=== PATIENT | male | born 1945 | race Caucasian/White ===

== ENCOUNTER → 2020-03-02 | Outpatient (CLI) | payer MEDICARE, BC ==
[~2020-03-02] MED LIST: CARVEDILOL12.5 MG PO; DIATRIZOATE MEGL/DIATRIZOA SOD 30 ML BTL PO ONE; FUROSEMIDE40 MG PO; IOPAMIDOL 370 MG/ML 200 ML INFUS..BTL INJ ONE; LISINOPRIL-HCT1 EAC2 PO; NEURONTIN300 MG PO; PERCOCET 10-321 EACH PO; PREDNISOLONE5 MG PO; PROTONIX20 MG PO; SODIUM CHLORIDE 0.9% 500ML 500 ML ONE; SODIUM CHLORIDE 0.9% 50ML 50 ML ONE; ULTRAM 50MG50 MG PO; Z.0.ARAVA20 MG PO; Z.0.MELOXICAM7.5 MG PO; Z.0.PLAQUENIL200 MG PO; Z.0.PREDNISONE5 MG PO; Z.0.SOMA350 MG PO; Z.0.VALIUM2 MG PO; Z.0.ZOCOR20 MG PO; Z.1.HYDROCODON-ACE1 PO; [UNRECOGNIZED DRUG - OTHER] PO
[2020-03-02 15:34] LABS: CREATININE, SERUM 1.3 mg/dL (0.72-1.25)
--- NOTE | 2020-03-02 18:47 | Diagnostic Imaging Report ---
EXAMINATION: CT of the abdomen and pelvis with contrast. TECHNIQUE: Spiral CT images of the abdomen and pelvis were performed from the lung bases to the lesser trochanters after the intravenous administration of 100 cc of Isovue 370 and the oral administration of dilute Gastrografin. Coronal and sagittal reformatted images were obtained. COMPARISON: CT abdomen and pelvis with contrast 10/20/2015 CLINICAL HISTORY:Diverticulitis DISCUSSION: ABDOMEN/PELVIS: LINES AND TUBES: A radiopaque wire or catheter is noted in the subcutaneous soft tissues of the left abdominal wall, which enters the peritoneal cavity in the left anterolateral abdomen, with distal tip in the left mid peritoneum (series 2, image 33). LOWER THORAX:1.7 x 2.0 cm nodule in the left lower lobe (series 2, image 4). Bilateral basal atelectatic changes. Subpleural paraseptal cystic changes are identified. Atherosclerotic calcification of the coronary arteries and thoracic aorta. HEPATOBILIARY: No focal hepatic lesions. No intra or extrahepatic biliary ductal dilation. GALLBLADDER: No radio-opaque stones or sludge. No wall thickening. SPLEEN: No splenomegaly. PANCREAS: No focal masses or ductal dilatation. Moderate pancreatic atrophy. Mild fatty replacement of the pancreatic head. ADRENALS: No adrenal nodules. KIDNEYS/URETERS: Bilateral renal cortical thinning. Cortical scarring in the inferior pole of the left kidney. No solid enhancing masses. No stones, hydronephrosis or evidence of obstruction. PELVIC ORGANS/BLADDER: Bladder is mostly unremarkable. Mildly dystrophic calcifications in the prostate. Seminal vesicles are unremarkable. PERITONEUM/RETROPERITONEUM: No free air or fluid. LYMPH NODES: No intra-abdominal, retroperitoneal, pelvic or inguinal lymphadenopathy. VESSELS: The celiac trunk,superior mesenteric and bilateral renal arteries are patent The portal, superior mesenteric and splenic veins are patent. Moderate to marked atherosclerotic calcification of the abdominal aorta, predominantly infrarenal portion, and bilateral iliac vessels. IVC filter in place. GI TRACT: Oral contrast is noted predominantly in the distal small bowel and proximal colon to the mid transverse. Distal descending and sigmoid colon marked diverticulosis. There is a 3-4 cm segment of the mid sigmoid colon (series 2, image 67 and coronal image 60), which shows wall thickening and very mild very sigmoidal fat stranding. No foci of extraluminal air or adjacent well-defined enhancing fluid collections. The bowel shows no dilation or evidence of obstruction. BONES AND SOFT TISSUE: Marked generalized osteopenia. No aggressive lytic or suspicious sclerotic lesions. Marked multilevel degenerated discs and facet hypertrophy in the lumbosacral spine. Posterior fusion hardware extending from L4 through S1. Intact partially visualized hardware in the right proximal femur. Soft tissues are grossly unremarkable. IMPRESSION: 1. Findings likely represent very mild or early diverticulitis, in the appropriate clinical setting. No evidence of perforation or adjacent abscess formation. 2. 2.0 cm solid nodule in the left lower lobe, suspicious for primary bronchogenic neoplasm. Recommend tissue diagnosis with biopsy or PET/CT, if patient unable to tolerate biopsy. Signed by: Dr. Ramon Herrera M.D. on 03/02/2020 6:43 PM
== END ==
LOC: CT 14:25
PROVIDERS: ATTEND Internal Medicine Gastroenterology
DX: K57.92 Diverticulitis of intestine, part unspecified, without perforation or abscess without bleeding (principal)
CPT/HCPCS: 36415; 74177; 82565; 84520; 96360; J7040; Q9967

== ENCOUNTER → 2020-03-05 | Day surgery (SDC) | payer MEDICARE, BC ==
[2020-03-02 17:09] LABS: BASOPHILS % 0.4 % (0.0-1.0); EOSINOPHILS # (AUTO) 0.2 (0.0-0.4); EOSINOPHILS % 2.2 % (0.0-6.0); HEMATOCRIT 43.5 % (38.2-49.6); HEMOGLOBIN 13.8 g/dL (14.0-18.0); LYMPHOCYTES # (AUTO) 2.7 (1.0-3.2); LYMPHOCYTES % 27.2 % (18.0-39.1); MEAN CORPUSCULAR HEMOGLOBIN 31.4 pg (28-32); MEAN CORPUSCULAR HGB CONC 31.7 g/dL (31-35); MEAN CORPUSCULAR VOLUME 98.9 fL (81-99); MONOCYTES # (AUTO) 1.3 (0.2-0.8); MONOCYTES % 13.4 % (4.4-11.3); NEUTROPHILS # (AUTO) 5.5 (2.1-6.9); PLATELET COUNT 151 x10e3/uL (140-360); RED CELL DISTRIBUTION WIDTH 12.5 % (11.7-14.4)
[~2020-03-05] MED LIST changes: -DIATRIZOATE MEGL/DIATRIZOA SOD 30 ML BTL PO ONE; +ETOMIDATE 2 MG/ML 10 ML INJ IV ONE; +FENTANYL CITRATE/PF 100MCG/2 ML INJ ONE; +HYDRALAZINE HCL 20 MG/ML VIAL ONE; -IOPAMIDOL 370 MG/ML 200 ML INFUS..BTL INJ ONE; +LIDOCAINE HCL 2% LOCAL INJ 5 ML SDV VIAL INJ ONE; +MIDAZOLAM HCL 2 MG/2 ML VIAL ONE; +PROPOFOL IV EMULSION 10 MG/ML 20 ML VIAL ONE; -SODIUM CHLORIDE 0.9% 500ML 500 ML ONE; -SODIUM CHLORIDE 0.9% 50ML 50 ML ONE
--- NOTE | 2020-03-05 07:15 | NUR ---
SPIRITUAL CARE - Pre-Surgery Assessment: Pt in bed. Pt's at bedside. Pt reported supportive attention from family and friends. Intervention: Sign Hanger Supervisor provided pastoral presence, hospitality, prayer, and sympathetic listening. Acquainted pt with availability of histology manager while hospitalized. Outcome: Pt expressed appreciation for visit. No need for follow up indicated at this time. GALEN Wilde Spiritual Care Department O: [phone]
[2020-03-05 08:45] VITALS: BP 149/93
--- NOTE | 2020-03-05 09:03 | Operative Report ---
DATE OF PROCEDURE: 03/05/2020 SURGEON: Jerrod Nascimento MD PROCEDURE: EGD with biopsies. INDICATIONS FOR EGD: Melena. MEDICATIONS: The patient was done under MAC, please see anesthesiologist's note. PROCEDURE IN DETAIL: With the patient in the left lateral decubitus position, a flexible fiberoptic Olympus gastroscope was introduced into the esophagus under direct visualization without any difficulty. The esophagus appeared to be within normal limits. The scope was then advanced with ease into the stomach. Mucosa overlying the antrum and the body revealed some diffuse erythema and moderate edema, and biopsies were obtained, sent to stain for H pylori. The pylorus was intubated with ease and the scope was advanced all the way to the second portion of the duodenum. The scope was then withdrawn slowly. Mucosa overlying the proximal second portion and duodenal bulb appeared to be within normal limits. The scope was then withdrawn back into the stomach and retroflexed, and mucosa overlying the fundus and cardia appeared to be within normal limits. The scope was then straightened out it was subsequently withdrawn. The patient tolerated the procedure well. IMPRESSION: 1. Normal esophagus. 2. Gastritis biopsied, biopsies sent to stain for H pylori. PLAN: Follow up histology. Continue Protonix 40 mg one p.o. q.a.m. a.c. If melena persists, the patient will need a small bowel series and if negative, a capsule endoscopy. The patient declined colonoscopy. Jerrod Nascimento MD [facility] [place] /[id number] cc: Elkin Mathias MD
== END | disposition home or self-care (01) ==
LOC: OR 05:49
PROVIDERS: ATTEND Internal Medicine Gastroenterology
DX: K29.60 Other gastritis without bleeding (principal); K57.92 Diverticulitis of intestine, part unspecified, without perforation or abscess without bleeding; K58.9 Irritable bowel syndrome, unspecified; Z86.718 Personal history of other venous thrombosis and embolism; Z85.118 Personal history of other malignant neoplasm of bronchus and lung; I10 Essential (primary) hypertension; Z01.810 Encounter for preprocedural cardiovascular examination; Z01.812 Encounter for preprocedural laboratory examination; Z11.59 Encounter for screening for other viral diseases
CPT/HCPCS: 36415; 43239; 85025; 87635; 88305; 88312; 93005; J0360; J2001; J2250; J2704; J3010

== ENCOUNTER 2020-03-12 14:57 | Emergency (ER) | payer MEDICARE, BC, OTHER ==
[~2020-03-12] VITALS: Ht 182.9 cm; Wt 114.3 kg
[~2020-03-12 14:57] MED LIST changes: -ETOMIDATE 2 MG/ML 10 ML INJ IV ONE; -FENTANYL CITRATE/PF 100MCG/2 ML INJ ONE; -HYDRALAZINE HCL 20 MG/ML VIAL ONE; -LIDOCAINE HCL 2% LOCAL INJ 5 ML SDV VIAL INJ ONE; -MIDAZOLAM HCL 2 MG/2 ML VIAL ONE; -PROPOFOL IV EMULSION 10 MG/ML 20 ML VIAL ONE
--- NOTE | 2020-03-12 15:28 | NUR ---
URINAL AT BEDSIDE. AWARE OF NEED FOR URINE SAMPLE.
[2020-03-12 15:40] LABS: BASOPHILS % 0.4 % (0.0-1.0); EOSINOPHILS # (AUTO) 0.1 (0.0-0.4); EOSINOPHILS % 1.3 % (0.0-6.0); HEMATOCRIT 43.4 % (38.2-49.6); HEMOGLOBIN 13.8 g/dL (14.0-18.0); LYMPHOCYTES # (AUTO) 1.5 (1.0-3.2); LYMPHOCYTES % 15.2 % (18.0-39.1); MEAN CORPUSCULAR HEMOGLOBIN 31.2 pg (28-32); MEAN CORPUSCULAR HGB CONC 31.8 g/dL (31-35); MONOCYTES # (AUTO) 0.8 (0.2-0.8); MONOCYTES % 8.3 % (4.4-11.3); NEUTROPHILS # (AUTO) 7.3 (2.1-6.9); PLATELET COUNT 186 x10e3/uL (140-360); RED BLOOD COUNT 4.43 x10e6/uL (4.3-5.7); RED CELL DISTRIBUTION WIDTH 12.8 % (11.7-14.4)
[2020-03-12 15:48] LABS: INR 0.9; PROTHROMBIN TIME 12.7 seconds (11.9-14.5)
[2020-03-12 15:56] LABS: ALBUMIN 3.5 g/dL (3.5-5.0); ALBUMIN/GLOBULIN RATIO 1.2 (0.8-2.0); ANION GAP 12.4 mmol/L (8-16); CREATININE, SERUM 1.27 mg/dL (0.72-1.25); POTASSIUM 4.4 mmol/L (3.5-5.1)
[2020-03-12 16:02] LABS: CREATINE KINASE MB 1.1 ng/mL (0-5.0)
[2020-03-12 16:03] LABS: B-TYPE NATRIURETIC PEPTIDE2 102.9 pg/mL (0-100)
--- NOTE | 2020-03-12 16:39 | NUR ---
2ND CALL FOR RADIOLOGY
[2020-03-12] MEDS ORDERED: SODIUM CHLORIDE 0.9% 1000ML 1,000 ML IV STA (17:06)
[2020-03-12 17:15] LABS: COLOR,URINE YELLOW (YELLOW)
[2020-03-12 17:16] LABS: BILIRUBIN,URINE NEGATIVE (NEGATIVE); CLARITY,URINE CLEAR (CLEAR); KETONES,URINE NEGATIVE (NEGATIVE); LEUKOCYTE ESTERASE ,URINE NEGATIVE (NEGATIVE); NITRITE,URINE NEGATIVE (NEGATIVE); PROTEIN,URINE DIPSTICK NEGATIVE (NEGATIVE); URINE UROBILINOGEN 0.2 mg/dL (0.2 - 1)
[2020-03-12] MEDS ORDERED: DIATRIZOATE MEGL/DIATRIZOA SOD 30 ML BTL PO ONE (17:38)
--- NOTE | 2020-03-12 17:46 | Emergency Department Note ---
History of Present Illnes History of Present Illness Chief Complaint: COVID PUI History of Present Illness This is a 75 year old male LLQ ABD PAIN X 3 DAYS. DIARRHEA, NAUSEA, LOW GRADE FEVER. ROOM AIR WAS 90-91%. PT THEN TOLD EMS HE'S SUPPOSE TO BE ON PERMANENT O2 AND PLACED ON 2 LPM SATING 97% NOW. STATES LAST WK COVID WAS NEGATIVE. PT NOT EATING OR DRINKING X THREE DAYS. FEELING WEAK. 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 Any updates have been documented here. (RUBINA GARCIA MD) Past Medical History Recent Fever: No Clinical Suspicion of Infectio: No New/Unexplained Change in Ment: No Past Medical History: Hypertension, CHF, Cancer, Hyperlipedemia, Chronic Back Pain, Osteoarthritis Other Medical History: ARTHRITIS DIVERTICULITIS LUNG CANCER Past Surgical History: Back Surgery Other Surgery: SPINAL FUSION X 5 NECK FUSION RIGHT FEMUR; (RUBINA GARCIA MD) Social History Smoking Cessation: Unknown if ever smoked Counseling Performed: No Alcohol Use: None Any Illegal Drug Use: No TB Exposure/Symptoms: No Physically hurt or threatened: No (RUBINA GARCIA MD) Other Last Tetanus: UNK Last Flu: Y Last Pneumovax: Y (RUBINA GARCIA MD) Review of Systems Review of Systems Constitutional: Reports no symptoms EENTM: Reports no symptoms Cardiovascular: Reports no symptoms Respiratory: Reports no symptoms Gastrointestinal: Reports as per HPI, Reports abdominal pain Genitourinary: Reports no symptoms Musculoskeletal: Reports no symptoms Integumentary: Reports no symptoms Neurological: Reports no symptoms Psychological: Reports no symptoms Endocrine: Reports no symptoms Hematological/Lymphatic: Reports no symptoms (RUBINA GARCIA MD) Physical Exam Related Data Allergies: Coded Allergies: No Known Drug Allergies (Verified Allergy, Unknown, 04/28/13) Triage Vital Signs Vital Signs Date Time Temp Pulse Resp B/P (MAP) Pulse Ox O2 Delivery O2 Flow Rate FiO2 03/12/20 14:59 99.3 74 18 146/90 96 Vital signs reviewed: Yes (RUBINA GARCIA MD) Physical Exam CONSTITUTIONAL Constitutional: Present well-developed, Present well-nourished HENT HENT: Present normocephalic, Present atraumatic, Present oropharynx cl ear/moist, Present nose normal HENT L/R: Present left ext ear normal, Present right ext ear normal EYES Eyes: Reports PERRL, Reports conjunctivae normal NECK Neck: Present ROM normal PULMONARY Pulmonary: Present effort normal, Present breath sounds normal CARDIOVASCULAR Cardiovascular: Present regular rhythm, Present heart sounds normal, Present LLE edema, Present RLE edema GASTROINTESTINAL Abdominal: Present soft, Present tender (VERY MINIMAL TENDERNESS LLQ WITHOUT R/G); Absent guarding, Absent mass, Absent rebound GENITOURINARY Genitourinary: Present exam deferred SKIN Skin: Present warm, Present dry MUSCULOSKELETAL Musculoskeletal: Present ROM normal NEUROLOGICAL Neurological: Present alert, Present oriented x 3, Present no gross motor or sensory deficits PSYCHOLOGICAL Psychological: Present mood/affect normal, Present judgement normal (RUBINA GARCIA MD) Results Laboratory Result Diagram: 03/12/20 1520 03/12/20 1520 Laboratory Laboratory Tests Test 03/12/20 16:55 03/12/20 15:20 03/12/20 13:20 Urine Color Yellow (YELLOW) Urine Clarity Clear (CLEAR) Urine pH 7 (5 - 7) Urine Specific [place] 1.020 (1.010-1.025) Urine Protein Negative (NEGATIVE) Urine Glucose (UA) Negative (NEGATIVE) Urine Ketones Negative (NEGATIVE) Urine Blood Negative (NEGATIVE) Urine Nitrite Negative (NEGATIVE) Urine Bilirubin Negative (NEGATIVE) Urine Urobilinogen 0.2 mg/dL (0.2 - 1) Urine Leukocyte Esterase Negative (NEGATIVE) White Blood Count 9.92 x10e3/uL (4.8-10.8) Red Blood Count 4.43 x10e6/uL (4.3-5.7) Hemoglobin 13.8 g/dL (14.0-18.0) Hematocrit 43.4 % (38.2-49.6) Mean Corpuscular Volume 98.0 fL (81-99) Mean Corpuscular Hemoglobin 31.2 pg (28-32) Mean Corpuscular Hemoglobin Concent 31.8 g/dL (31-35) Red Cell Distribution Width 12.8 % (11.7-14.4) Platelet Count 186 x10e3/uL (140-360) Neutrophils (%) (Auto) 74.0 % (38.7-80.0) Lymphocytes (%) (Auto) 15.2 % (18.0-39.1) Monocytes (%) (Auto) 8.3 % (4.4-11.3) Eosinophils (%) (Auto) 1.3 % (0.0-6.0) Basophils (%) (Auto) 0.4 % (0.0-1.0) Neutrophils # (Auto) 7.3 (2.1-6.9) Lymphocytes # (Auto) 1.5 (1.0-3.2) Monocytes # (Auto) 0.8 (0.2-0.8) Eosinophils # (Auto) 0.1 (0.0-0.4) Basophils # (Auto) 0.0 (0.0-0.1) Absolute Immature Granulocyte (auto 0.08 x10e3/uL (0-0.1) Prothrombin Time 12.7 seconds (11.9-14.5) Prothromb Time International Ratio 0.90 Activated Partial Thromboplast Time 38.0 seconds (23.8-35.5) Sodium Level 138 mmol/L (136-145) Potassium Level 4.4 mmol/L (3.5-5.1) Chloride Level 101 mmol/L (98-107) Carbon Dioxide Level 29 mmol/L (22-29) Anion Gap 12.4 mmol/L (8-16) Blood Urea Nitrogen 17 mg/dL (7-26) Creatinine 1.27 mg/dL (0.72-1.25) Estimat Glomerular Filtration Rate 56 ML/MIN (60-) BUN/Creatinine Ratio 13 (6-25) Glucose Level 104 mg/dL (74-118) Lactic Acid Level 1.3 mmol/L (0.5-2.0) Calcium Level 9.0 mg/dL (8.4-10.2) Total Bilirubin 0.6 mg/dL (0.2-1.2) Aspartate Amino Transf (AST/SGOT) 30 IU/L (5-34) Alanine Aminotransferase (ALT/SGPT) 25 IU/L (0-55) Alkaline Phosphatase 83 IU/L (40-150) Creatine Kinase 95 IU/L (30-200) Creatine Kinase MB 1.10 ng/mL (0-5.0) Troponin I 0.030 ng/mL (0-0.300) B-Type Natriuretic Peptide 102.9 pg/mL (0-100) Total Protein 6.5 g/dL (6.5-8.1) Albumin 3.5 g/dL (3.5-5.0) Globulin 3.0 g/dL (2.3-3.5) Albumin/Globulin Ratio 1.2 (0.8-2.0) Lipase 46 U/L (8-78) (RUBINA GARCIA MD) Procedures 12 Lead ECG Interpretation ECG Interpretation : ECG: ECG 1 Paper Maker: Interpreted by ED physician Date: Mar 12, 2020 Time: 15:13 Rhythm: sinus rhythm QRS axis: left Conduction: LAFB ST segments normal: Yes T wave inversion: aVR, V1 Clinical Impression: abnormal ECG Additional Comments POOR RWP (RUBINA GARCIA MD) Assessment & Plan Medical Decision Making MDM CHECK CBC, CHEM, LIPASE, UA/CX, BLOOD CX, ECG, CARDIAC MARKERS, CXR, CT ABD/PELVIS - R/O LEUKOCYTOSIS, DIVERTICULITIS/ABSCESS, UTI, COLITIS, PANCREATITIS (RUBINA GARCIA MD) MDM Case discussed with Dr. Garcia, signout given to follow-up CT abdomen and pelvis given patient's recent diagnosis of diverticulitis. CT abdomen and pelvis unremarkable with resolution of diverticulitis noted. Patient and informed of findings. Patient's concerned that patient has been decompensating and is unable to walk, this is going on for last year. Per patient hasn't walked in 1 year. Referred [facility] to case managers further workup and management as an outpatient, both to light speak to PCP Dr. Mack to arrange for possible services as an outpatient (HILLARY ORTEGA DO) Reassessment Reassessment REPORT TO DR ORTEAG TO F/U CT ABD/PELVIS (RUBINA GARCIA MD) Assessment & Plan Final Impression: (1) Abdominal pain (HILLARY ORTEGA DO) Depart Disposition: HOME, SELF-CARE Last Vital Signs Date Time Temp Pulse Resp B/P (MAP) Pulse Ox O2 Delivery O2 Flow Rate FiO2 03/12/20 17:19 69 20 167/92 96 03/12/20 14:59 99.3 (RUBINA GARCIA MD) Home Meds Reported Medications Pantoprazole Sodium (PROTONIX) 20 Mg Tablet.dr, 40 MG PO DAILY, #30 TAB 03/01/20 Furosemide (FUROSEMIDE) 40 Mg Tablet, 20 MG PO BID, #30 TAB 03/01/20 Carvedilol (CARVEDILOL) 12.5 Mg Tablet, 12.5 MG PO BID, #60 TAB 03/01/20 Gabapentin (NEURONTIN) 300 Mg Capsule, 600 MG PO PRN, CAP 03/01/20 Oxycodone Hcl/Acetaminophen (PERCOCET 10-325 MG TABLET) 1 Each Tablet, 1 TAB PO QID PRN for MODERATE PAIN (4-6), TAB 03/01/20 Prednisone (Prednisone) 5 Mg Tablet, 10 MG PO DAILY 01/12/12 Meloxicam (Meloxicam) 7.5 Mg Tablet, 7.5 MG PO BID 01/10/12 Simvastatin (Zocor) 20 Mg Tablet, 20 MG PO DAILY 01/10/12 Hydroxychloroquine Sulfate (Plaquenil) 200 Mg Tablet, 200 MG PO BID 01/10/12 Sulfasalazine (Azulfidine) 500 Mg Tablet, 500 MG PO BID 01/10/12 Medications in the ED Sodium Chloride 1,000 ml @ 0 mls/hr Q0M STAT IV ; Start 03/12/20 at 17:06; Stop 03/12/20 at 17:11; Status DC Diatrizoate Meglum/ Diatrizoate Sod 30 ml STK-MED ONCE PO ; Start 03/12/20 at 17:38; Stop 03/12/20 at 17:32; Status DC (RUBINA GARCIA MD) RUBINA GARCIA MD Mar 12, 2020 17:46 HILLARY ORTEGA DO Mar 13, 2020 00:29
[2020-03-12 17:59] LABS: EPITHELIAL CELLS,URINE RARE /LPF
--- NOTE | 2020-03-12 19:44 | Diagnostic Imaging Report ---
EXAMINATION: CHEST SINGLE (PORTABLE) INDICATION: ^COUGH, DIARRHEA, FEVER COMPARISON: None FINDINGS: AP view TUBES and LINES: None. LUNGS/PLEURA: There are bilateral interstitial opacities, consistent with pulmonary edema.. There is left basilar opacity is likely due to pneumonia. There is no pleural effusion or pneumothorax. HEART AND MEDIASTINUM: Cardiac size is moderately enlarged. BONES AND SOFT TISSUES: No acute osseous lesion. Soft tissues are unremarkable. UPPER ABDOMEN: No free air under the diaphragm. IMPRESSION: Cardiomegaly with pulmonary edema. Left basilar opacity is likely due to pneumonia. Signed by: Bebo Radford MD on 03/12/2020 7:40 PM
[2020-03-12] MEDS ORDERED: SODIUM CHLORIDE 0.9% 50ML 50 ML ONE (19:58)
[2020-03-12] MEDS ORDERED: IOPAMIDOL 370 MG/ML 200 ML INFUS..BTL INJ ONE (19:58)
--- NOTE | 2020-03-12 21:02 | Diagnostic Imaging Report ---
EXAM: CT Abdomen and Pelvis WITH contrast INDICATION: LLQ ABD PAIN COMPARISON: Multiple prior CT examinations most recent CT abdomen and pelvis dated 03/02/2020. TECHNIQUE: Abdomen and pelvis were scanned utilizing a multidetector helical scanner from the lung base to the pubic symphysis after administration of IV contrast. Coronal and sagittal reformations were obtained. Dose modulation, iterative reconstruction, and/or weight based adjustment of the mA/kV was utilized to reduce the radiation dose to as low as reasonably achievable. Routine protocol was performed. Scan was performed when during portal venous phase. IV CONTRAST: 150 mL of Omnipaque 300 ORAL CONTRAST: Water COMPLICATIONS: None RADIATION DOSE: Total DLP: 789 mGy-cm Estimated effective dose: (DLP x 0.015 x size factor) mSv CTDIvol has been reviewed. It is below the limits set by the Radiation Protocol Committee (RPC). FINDINGS: LINES AND TUBES: Again seen is a radiopaque wire with distal tip in the left mid peritoneum LOWER THORAX:The previously reported 2.0 cm left lower lobe nodule is felt to represent subsegmental left basilar atelectasis. No definite pulmonary nodules seen. Subpleural paraseptal cystic changes are identified. HEPATOBILIARY: No focal hepatic lesions. No intra or extrahepatic biliary ductal dilation. GALLBLADDER: No radio-opaque stones or sludge. No wall thickening. SPLEEN: No splenomegaly. PANCREAS: No focal masses or ductal dilatation. Moderate pancreatic atrophy. Mild fatty replacement of the pancreatic head. ADRENALS: No adrenal nodules. KIDNEYS/URETERS: Multiple bilateral scarring. No solid enhancing masses. There is mild left hydroureter, unchanged. No stones or hydronephrosis. GI TRACT: Oral contrast is extends to the rectum. Sigmoid diverticulosis is again noted with no inflammation. The previously reported mild inflammatory changes in the sigmoid colon has resolved.The bowel shows no dilation or evidence of obstruction. PELVIC ORGANS/BLADDER: Bladder is mostly unremarkable. Coarse calcifications in the prostate. PERITONEUM/RETROPERITONEUM: No free air or fluid. LYMPH NODES: No intra-abdominal, retroperitoneal, pelvic or inguinal lymphadenopathy. VESSELS: Extensive atherosclerotic calcification are seen in tortuous abdominal aorta. IVC filter in place. BONES AND SOFT TISSUE: Degenerative changes are seen in the spine. Spinal fusion hardware and right femoral fixation hardware are unchanged. IMPRESSION: 1. Interval resolution of previously seen mild sigmoid diverticulitis. 2. Unchanged mild left hydroureter with no obstructive lesion or calculus noted. 3. The previously reported 2.0 cm left lower lobe nodule is felt to represent subsegmental left basilar atelectasis. No definite pulmonary nodules seen. Signed by: Bebo Radford MD on 03/12/2020 8:59 PM
--- NOTE | 2020-03-12 22:12 | NUR ---
PT INFORMED BY ED MD OF DISPO AND POC, CALLED TO INFORM WELL; NOTED UPSET, STATES "DR. MARTIN'S PURCHASING DIRECTOR TOLD US HE NEEDED TO BE ADMITTED FOR IV ABX, THIS IS NOT RIGHT", INFORMED PT THAT BASED ON WORKUP PT DOES NOT MEET ADMISSION CRITERIA PER ED MD, STATES "WELL HE IS WEEK AND DOES NOT FEEL GOOD", PATIENT ENDORSES TO SYMTPTOMS BUT STATES THAT HE HAS BEEN UNABLE TO AMBULATE FOR OVER ONE YEAR, STATES "Y'ALL DON'T ADMIT PEOPLE THAT ARE WEAK AND CAN'T WALK?", INFORMED OF PROTOCOLS, PT ALSO SPOKE TO ED MD AND WAS PROVIDED WITH RESULTS AND FURTHER F/U WITH DR. MARTIN; AT THIS TIME OKAY WITH POC AND D/C HOME VIA AMBULANCE.
--- NOTE | 2020-03-12 22:22 | NUR ---
CALLED [facility] FOR TRANSPORT HOME.
[2020-03-12] MEDS ORDERED: D5.45%NS/KCL 20MEQ 1,000 ML IV STA (22:46)
--- NOTE | 2020-03-13 | NUR ---
BEDSIDE REPORT GIVEN TO [facility]; PT TO BE TRANSPORTED HOME.
--- NOTE | 2020-03-13 00:05 | NUR ---
MEDIC REQUESTING FOR PT TO BE MEDICATIED FOR ASYMPTOMATIC HTN NOTED TO BE 196/103; PT STATES HE HAS NOT TOOK HIS BP MEDICATION TODAY HE HAS BEEN IN THE ED ALL DAY; INFORMED ED MD, RECEIVED ORDERS FOR HYDRALAZINE 10 MG IVP ONCE, WILL ADMINISTER PRIOR TO TRANSPORT.
[2020-03-13] MEDS ORDERED: HYDRALAZINE HCL 20 MG/ML VIAL ONE (00:13)
[2020-03-13] MEDS ORDERED: HYDRALAZINE HCL 20 MG/ML VIAL IV STA (00:23)
== END 2020-03-13 00:15 | disposition home or self-care (01) ==
LOC: ER 15:19
DX: R50.9 Fever, unspecified (principal); R10.32 Left lower quadrant pain; E78.5 Hyperlipidemia, unspecified; I50.9 Heart failure, unspecified; Z85.118 Personal history of other malignant neoplasm of bronchus and lung; Z87.19 Personal history of other diseases of the digestive system
CPT/HCPCS: 36415; 71045; 74177; 80053; 81001; 82550; 82553; 83605; 83690; 83880; 84484; 85025; 85610; 85730; 87040; 87086; 87635; 93005; 99284; J0360; Q9967